=== PATIENT | male | born 1965 | race Caucasian/White ===

== ENCOUNTER 2023-06-03 15:55 | Outpatient (CLI) | payer OTHER, SELFPAY ==
--- NOTE | 2023-06-03 16:00 | CT_ITS ---
Final Report Patient: DOM RM Facility:?[facility] Patient ID:?[id number] Site Patient ID:?[id number] Site :?1965 Study:?CT Head Angio CTA HEAD W/ISOVUE 370 95CC-06/03/2023 4:23:04 PM Ordering Physician:FER Final Report: CLINICAL HISTORY: Carotid stenosis. TECHNIQUE: Standard helical CT image acquisition through the head following the administration of intravenous contrast was performed. Multiplanar reconstructed images performed on a separate workstation. COMPARISON: None available. FINDINGS: There is no intracranial proximal large vessel occlusion. There is scattered intracranial atherosclerotic calcification, most pronounced in the carotid siphons, with resulting mild to moderate stenosis of the clinoid/supraclinoid left ICA. No evidence of cerebral aneurysm. No findings to suggest an arterial- venous shunting lesion. The major dural venous sinuses and deep venous system are patent. IMPRESSION: Scattered intracranial atherosclerotic disease with [id number] stenosis of the clinoid/supraclinoid left ICA. Please note that all CT scans at this facility use dose modulation, iterative reconstruction, and/or weight-based dosing when appropriate to reduce radiation dose to as low as reasonably achievable. Dictated by Nish Blankenship MD @ 06/05/2023 2:56:43 PM (Electronic Signature)
--- NOTE | 2023-06-03 16:15 | CT_ITS ---
Final Report Patient: DOM RM Facility:?[facility] Patient ID:?[id number] Site Patient ID:?[id number]. Site :?1965 Study:?CT Neck Angio CTA NECK W/ISOVUE 370 95CC-06/03/2023 4:25:25 PM Ordering Physician:FER Final Report: CLINICAL HISTORY: Carotid stenosis. TECHNIQUE: Standard helical CT image acquisition through the neck was performed after intravenous contrast bolus enhancement. Multiplanar reconstructed images were performed and interpreted. COMPARISON: None available. FINDINGS: The origins of the great vessels from the aortic arch are patent. The origins of the right and left vertebral arteries are patent. The common carotid arteries are patent. There is severe (70-80%) stenosis of the proximal right ICA by NASCET criteria. The more distal cervical right ICA is patent. There is critical (<95%) atherosclerotic stenosis of the proximal left ICA, by NASCET criteria, with resulting diminutive caliber of the more distal cervical left ICA. The cervical segments of the vertebral arteries are patent. IMPRESSION: 1. Critical (<95%) atherosclerotic stenosis of the proximal left ICA, by NASCET criteria, with resulting diminutive caliber of the more distal cervical ICA. 2. Severe (70-80%) atherosclerotic stenosis of the proximal right ICA by NASCET criteria. Please note that all CT scans at this facility use dose modulation, iterative reconstruction, and/or weight-based dosing when appropriate to reduce radiation dose to as low as reasonably achievable. Dictated by Nish Blankenship MD @ 06/05/2023 2:47:42 PM (Electronic Signature)
== END 2023-06-03 15:56 | disposition home or self-care (01) ==
LOC: CT 16:01
PROVIDERS: PCP Surgery Vascular Surgery; Visit Provider Surgery Vascular Surgery
DX: I65.23 Occlusion and stenosis of bilateral carotid arteries (principal)
CPT/HCPCS: 70496; 70498; Q9967